=== PATIENT | female | born 1950 ===

== ENCOUNTER 2017-12-24 11:36 | Emergency (ER) | payer OTHER ==
[2017-12-24 11:37] VITALS: BMI 28.3
[2017-12-24 11:49] VITALS: O2SAT 99
[2017-12-24] MEDS ORDERED: Sodium Chloride 0.9% 1,000 ML IV ONE (12:16)
[2017-12-24] MEDS ORDERED: Sodium Chloride 0.9% 1,000 ML ONE (12:35)
[2017-12-24 12:44] LABS: BASO % 0.9 % (0.0-2.0); EOS # 0.1 K/uL (0.0-0.7); EOS % 2.3 % (0.0-4.0); LYMPH # 1.6 K/uL (1.0-4.3); LYMPH % 34.7 % (20.0-40.0); MEAN CORPUSCULAR HGB CONC 33.5 g/dL (33.0-37.0); MEAN PLATELET VOLUME 7.7 fL (7.2-11.7); MONO # 0.4 K/uL (0.0-0.8); MONO % 8.1 % (0.0-10.0); NEUT # 2.5 K/uL (1.8-7.0); RBC 4.06 Mil/uL (3.80-5.20); RED CELL DISTRIBUTION WIDTH 13.1 % (11.5-14.5); WHITE BLOOD COUNT 4.5 K/uL (4.8-10.8)
[2017-12-24 12:50] LABS: MEAN CELL VOLUME 95.6 fL (81.0-99.0)
[2017-12-24 12:54] LABS: ALB/GLOB RATIO 1.4 (1.0-2.1); ALBUMIN 4.5 g/dL (3.5-5.0); ALT/SGPT 54 U/L (9-52); AST/SGOT 35 U/L (14-36); BLOOD UREA NITROGEN 15 mg/dL (7-17); CALCIUM 9.8 mg/dl (8.6-10.4); GFR NON-AFRICAN AMERICAN > 60
--- NOTE | 2017-12-24 13:13 | C.PDOC ---
History Of Present Illness 67 year old female with a history of hypothyroidism presents to the ED for evaluation of right-sided headache for 2 days. Patient reports a pulsating pain to the right side of her head. Admits to taking Tylenol yesterday with improv ement but today she woke up with a headache again. Denies fever, vision changes, vomiting, photophobia, neck pain, numbness, weakness, and any other associated symptoms. <Dianne Horner - Last Filed: 12/24/17 13:52> History Per: Patient History/Exam Limitations: no limitations Onset/Duration Of Symptoms: Days Current Symptoms Are (Timing): Still Present <Dianne Horner - Last Filed: 12/24/17 13:52> <Chary Rojas - Last Filed: 12/24/17 13:53> Time Seen by Provider: 12/24/17 12:10 Chief Complaint (Nursing): Headache Past Medical History Reviewed: Historical Data, Nursing Documentation, Vital Signs Vital Signs: Last Vital Signs Temp 98.5 F 12/24/17 11:42 Pulse 73 12/24/17 11:42 Resp 18 12/24/17 11:42 BP 130/75 12/24/17 11:42 Pulse Ox 99 12/24/17 11:42 - Medical History PMH: Arthritis, Hypothyroidism Family History: States: Unknown Family Hx - Social History Hx Tobacco Use: No Hx Alcohol Use: No Hx Substance Use: No - Immunization History Hx Tetanus Toxoid Vaccination: No Hx Influenza Vaccination: Yes Hx Pneumococcal Vaccination: No <Dianne Horner - Last Filed: 12/24/17 13:52> Vital Signs: Last Vital Signs Temp 98.5 F 12/24/17 11:42 Pulse 73 12/24/17 11:42 Resp 18 12/24/17 11:42 BP 130/75 12/24/17 11:42 Pulse Ox 99 12/24/17 13:52 <Chary Rojas - Last Filed: 12/24/17 13:53> Review Of Systems Constitutional: Negative for: Fever Eyes: Negative for: Vision Change, Other (photophobia.) Gastrointestinal: Negative for: Vomiting Musculoskeletal: Negative for: Neck Pain Neurological: Negative for: Weakness, Numbness <Dianne Horner - Last Filed: 12/24/17 13:52> Physical Exam - Physical Exam Appears: Well, Non-toxic, Other (fee) Skin: Normal Color, Warm, Dry Head: Atraumatic, Normacephalic Eye(s): bilateral: Normal Inspection, PERRL, EOMI Ear(s): Bilateral: Normal Oral Mucosa: Moist Neck: Normal ROM, Supple, No Other (non-tender) Extremity: Normal ROM (x4) Neurological/Psych: Oriented x3, Normal Speech, Normal Cranial Nerves, Normal Motor, Normal Sensation Gait: Steady <Dianne Horner - Last Filed: 12/24/17 13:52> ED Course And Treatment - Laboratory Results Result Diagrams: 12/24/17 12:36 12/24/17 12:36 O2 Sat by Pulse Oximetry: 99 (RA) Pulse Ox Interpretation: Normal <Dianne Horner Last Filed: 12/24/17 13:52> - Laboratory Results Result Diagrams: 12/24/17 12:36 12/24/17 12:36 <Chary Rojas - Last Filed: 12/24/17 13:53> Medical Decision Making Medical Decision Making: Plan/Orders: --CT Head w/out contrast --Blood sent. --Given Reglan. 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 - Scribe Statement The provider has reviewed the documentation as recorded by the Scribe (Miracle Maldonado) All medical record entries made by the Scribe were at my direction and personally dictated by me. I have reviewed the chart and agree that the record accurately reflects my personal performance of the history, physical exam, med ica decision making, and the department course for this patient. I have also personally directed, reviewed, and agree with the discharge instructions and disposition. <Dianne Horner - Last Filed: 12/24/17 13:52>
--- NOTE | 2017-12-24 13:33 | CT ---
Date of service: 12/24/2017 PROCEDURE: CT HEAD WITHOUT CONTRAST. HISTORY: Headache rt side COMPARISON: Noncontrast head CT 06/05/2014. TECHNIQUE: Axial computed tomography images were obtained through the head/brain without intravenous contrast. Radiation dose: Total exam DLP = 956.47 mGy-cm. This CT exam was performed using one or more of the following dose reduction techniques: Automated exposure control, adjustment of the mA and/or kV according to patient size, and/or use of iterative reconstruction technique. FINDINGS: HEMORRHAGE: No intracranial hemorrhage. BRAIN: Normal umana-white matter differentiation and density are appreciated throughout the cerebrum and cerebellum with the brainstem appearing unremarkable as well. There is no mass effect. There is no suspicious extra-axial fluid collection and the midline brain anatomy appears diffusely unremarkable. VENTRICLES: Unremarkable. No hydrocephalus. CALVARIUM: Unremarkable. PARANASAL SINUSES: Unremarkable as visualized. No significant inflammatory changes. MASTOID AIR CELLS: Unremarkable as visualized. No inflammatory changes. OTHER FINDINGS: None. IMPRESSION: Unremarkable noncontrast CT of the Head. No significant interval change compared prior head CT 06/05/2014.
--- NOTE | 2017-12-24 14:05 | C.PDOC ---
History Of Present Illness 67 year old female with a history of hypothyroidism presents to the ED for evaluation of right-sided headache for 2 days. Patient reports a pulsating pain to the right side of her head. Admits to taking Tylenol yesterday with arlynv ement but today she woke up with a headache again. Denies fever, vision changes, vomiting, photophobia, neck pain, numbness, weakness, and any other associated symptoms. Time Seen by Provider: 12/24/17 12:10 Chief Complaint (Nursing): Headache History/Exam Limitations: no limitations Onset/Duration Of Symptoms: Days Current Symptoms Are (Timing): Still Present Past Medical History Reviewed: Historical Data, Nursing Documentation, Vital Signs Vital Signs: Last Vital Signs Temp 98.5 F 12/24/17 11:42 Pulse 73 12/24/17 11:42 Resp 18 12/24/17 11:42 BP 130/75 12/24/17 11:42 Pulse Ox 99 12/24/17 11:42 - Medical History PMH: Arthritis, Hypothyroidism Family History: States: Unknown Family Hx - Social History Hx Tobacco Use: No Hx Alcohol Use: No Hx Substance Use: No - Immunization History Hx Tetanus Toxoid Vaccination: No Hx Influenza Vaccination: Yes Hx Pneumococcal Vaccination: No Review Of Systems Constitutional: Negative for: Fever, Weakness Eyes: Negative for: Vision Change Cardiovascular: Negative for: Chest Pain, Palpitations Gastrointestinal: Negative for: Nausea, Vomiting Musculoskeletal: Negative for: Neck Pain Neurological: Positive for: Headache. Negative for: Weakness, Numbness, Incoordination Physical Exam - Physical Exam Appears: Well, Non-toxic Skin: Normal Color, Warm, Dry Head: Atraumatic, Normacephalic Eye(s): bilateral: Normal Inspection, PERRL, EOMI, Other (no nystagmus) Ear(s): Bilateral: Normal Oral Mucosa: Moist Neck: Normal ROM, Supple Chest: Symmetrical Cardiovascular: Rhythm Regular, No Murmur Respiratory: Normal Breath Sounds, No Wheezing Gastrointestinal/Abdominal: Normal Exam, Soft, No Tenderness Extremity: Bilateral: Atraumatic, Normal Color And Temperature, Normal ROM Neurological/Psych: Oriented x3, Normal Speech, Normal Cranial Nerves Gait: Steady ED Course And Treatment - Laboratory Results Result Diagrams: 12/24/17 12:36 12/24/17 12:36 O2 Sat by Pulse Oximetry: 99 (RA) Pulse Ox Interpretation: Normal - CT Scan/US CT Head Other Rad Studies (CT/US): Read By Radiologist CT/US Interpretation: FINDINGS: HEMORRHAGE: No intracranial hemorrhage. BRAIN: Normal umana-white matter differentiation and density are appreciated throughout the cerebrum and cerebellum with the brainstem appearing unremarkable as well. There is no mass effect. There is no suspicious extra-axial fluid collection and the midline brain anatomy appears diffusely unremarkable. VENTRICLES: Unremarkable. No hydrocephalus. CALVARIUM: Unremarkable. PARANASAL SINUSES: Unremarkable as visualized. No significant inflammatory changes. MASTOID AIR CELLS: Unremarkable as visualized. No inflammatory changes. OTHER FINDINGS: None. IMPRESSION: Unremarkable noncontrast CT of the Head. No significant interval change compared prior head CT 06/05/2014. Medical Decision Making Medical Decision Making: Plan/Orders: --CT Head w/out contrast --Labs --IV NS, Reglan. Progress/Update: CT of head shows no acute findings. Labs unremarkable. On re-evaluation the patient reports feeling better headache has resolved. She has no fever, nuchal rigidity or neuro deficits. Patient stable for discharge home. Prescribed Ibuprofen. Disposition Counseled Patient/Family Regarding: Diagnosis, Need For Followup, Rx Given - Disposition Referrals: Lior Wagoner MD [Staff Provider] - Disposition: HOME/ ROUTINE Disposition Time: 14:00 Condition: STABLE Additional Instructions: TOME DOLOR DE LA MEDICINA DE TYLENOL O IBUPROFENO KARRIE SEA NECESARIO SEGUIR CON CHÁVEZ MDICO Prescriptions: Ibuprofen [Motrin] 600 mg PO Q8 #30 tab Instructions: Headache, Adult Forms: [facility] (Bermudian) Print Language: ARABIC - POA Present On Arrival: None - Clinical Impression Clinical Impression: Headache - PA / HOT ROLLER / Resident Statement MD/DO has reviewed & agrees with the documentation as recorded. - Scribe Statement The provider has reviewed the documentation as recorded by the Scribe (Miracle Maldonado) All medical record entries made by the Scribe were at my direction and personally dictated by me. I have reviewed the chart and agree that the record accurately reflects my personal performance of the history, physical exam, medical decision making, and the department course for this patient. I have also personally directed, reviewed, and agree with the discharge instructions and disposition.
[2017-12-24 14:07] VITALS: BP 125/70; PULSE 72; RESP 16; TEMP 98.4
== END 2017-12-24 14:06 | disposition home or self-care (01) ==
LOC: C.ER 11:36
DX: R51 Headache (principal)
CPT/HCPCS: 70450; 80053; 85025; 96361; 96374; 99284; J2765; J7030